=== PATIENT | male | born 1995 | race African-American/Black ===

== ENCOUNTER 2019-04-19 23:35 | Emergency (ER) | payer OTHER ==
[~2019-04-19] VITALS: Ht 175.3 cm; Wt 70.3 kg
[2019-04-19 23:41] VITALS: BP_SYST 122
--- NOTE | 2019-04-19 23:43 | NUR ---
Patient to ER bed 08 to gown for evaluation. Side rails up.
--- NOTE | 2019-04-20 | NUR ---
PT came to the ED for c/o "I think I'm appendicitis." Reports he had symptoms for 2 days of discomfort in the R lower quadrant of his ABD. Reports diarrhea but no n/v or fever. Reports some loss of appetite. No other complaints/injuries noted. Will cont. to monitor.
--- NOTE | 2019-04-20 00:05 | NUR ---
Chloé perera in [facility] - 04/20/19 at 0421 by [email or web address] SHAYY Burnett at bedside examining patient.
--- NOTE | 2019-04-20 00:05 | NUR ---
caty Miguel at bedside examining patient.
[2019-04-20] MEDS ORDERED: NACL 0.9% 1,000 ML IV ONE (00:14)
[2019-04-20] MEDS ORDERED: KETOROLAC TROMETHAMINE 30 MG VIAL IVP ONE (00:15)
[2019-04-20 00:25] LABS: BILIRUBIN,URINE NEGATIVE (NEGATIVE); BLOOD, URINE NEGATIVE (NEGATIVE); CLARITY/URINE CLEAR (CLEAR); COLOR,URINE YELLOW (YELLOW); GLUCOSE,URINE NEGATIVE (NEGATIVE); KETONES,URINE NEGATIVE (NEGATIVE); LEUKOCYTE ESTERASE ,URINE NEGATIVE (NEGATIVE); NITRITE, URINE NEGATIVE (NEGATIVE); PH,URINE 5.5 (5.0-8.0); PROTEIN URINE NEGATIVE (NEGATIVE); UROBILINOGEN,URINE 0.2 (0.2-1.0)
[2019-04-20 00:59] LABS: BASOPHILS % (AUTO) 0.6 % (0.0-2.0); EOSINOPHILS % (AUTO) 0.9 % (0.0-4.0); HEMATOCRIT 38.5 % (36-54); HEMOGLOBIN 13.3 g/dL (14.0-18.0); LYMPHOCYTES # (AUTO) 2.1 K/uL (1.0-5.5); LYMPHOCYTES % (AUTO) 40.2 % (20.5-51.5); MEAN CORPUSCULAR HEMOGLOBIN 29 pg (27-31); MEAN CORPUSCULAR HGB CONC 35 % (32-36); MEAN CORPUSCULAR VOLUME 85 fL (79.0-98.0); MONOCYTES # (AUTO) 0.5 K/uL (0.0-1.0); MONOCYTES % (AUTO) 8.9 % (1.7-9.3); NEUTROPHILS # (AUTO) 2.5 K/uL (1.8-7.7); NEUTROPHILS % (AUTO) 49.4 % (40.0-70.0); PLATELET COUNT (AUTO) 244 K/uL (130-430); RED BLOOD CELL COUNT(AUTO) 4.54 MIL/uL (4.2-6.2); RED CELL DISTRIBUTION WIDTH 13.3 % (9.0-15.0); WHITE BLOOD COUNT (AUTO) 5.1 K/uL (4.8-10.8)
[2019-04-20 01:19] LABS: CALCIUM 8.7 mg/dL (8.4-11.0); CREATININE 0.94 mg/dL (0.55-1.30); POTASSIUM 3.9 mmol/L (3.5-5.1)
[2019-04-20 01:22] LABS: ALBUMIN 3.6 g/dL (3.4-4.8); TOTAL BILIRUBIN 0.6 mg/dL (0.0-1.0)
[2019-04-20 01:45] VITALS: BP_SYST 122
--- NOTE | 2019-04-20 01:45 | NUR ---
Note undone in EDM - 04/20/19 at 0420 by [email or web address] PT came to the ED for c/o "I think I'm appendicitis." Reports he had symptoms for 2 days of discomfort in the R lower quadrant of his ABD. Reports diarrhea but no n/v or fever. Reports some loss of appetite. No other complaints/injuries noted. Will cont. to monitor.
--- NOTE | 2019-04-20 01:45 | NUR ---
Patient given written and verbal discharge instructions and verbalizes understanding. ER MD Dr. Stockton discussed with patient the results and treatment provided. Patient in stable condition. ID arm band removed. Patient educated on pain management and to follow up with PMD. Pain Scale 0/10. Opportunity for questions provided and answered. Medication side effect fact sheet provided.
--- NOTE | 2019-04-20 01:50 | NUR ---
Chloé perera in [facility] - 04/20/19 at 0420 by [email or web address] SHAYY Miguel at bedside examining patient.
== END 2019-04-20 01:45 | disposition home or self-care (01) ==
LOC: SED 23:35
DX: R10.31 Right lower quadrant pain (principal)
CPT/HCPCS: 36415; 74176; 80053; 81003; 85025; 87040; 96361; 96374; 99284; J1885; J7030